=== PATIENT | female | born 1970 | race Caucasian/White ===

== ENCOUNTER 2019-03-18 23:23 | Emergency (ER) | payer BC | END 2019-03-19 00:35 | disposition home or self-care (01) | LOC: ERS 23:23 | DX: B35.9 Dermatophytosis, unspecified (principal); E03.9 Hypothyroidism, unspecified; Z79.899 Other long term (current) drug therapy | CPT/HCPCS: 99282 ==

== ENCOUNTER 2019-07-27 09:53 | Outpatient (CLI) | payer OTHER ==
--- NOTE | 2019-07-27 12:09 | MMO ---
Left Breast MAMMO Unilat Diag DDI LT+JOSE J. CLINICAL HISTORY: Patient is 49 years old and is seen for diagnostic exam. The patient has the following family history of breast cancer: mother, at age 68, malignant (generic); maternal aunt, at age 70, malignant (generic) and cousin female, at age 38, malignant (generic). The patient has a history of thyroid cancer in 2010. VIEWS: The views performed were: left craniocaudal spot compression magnification; left craniocaudal spot compression with tomosynthesis; left mediolateral oblique spot compression with tomosynthesis; left mediolateral spot compression magnification; and left mediolateral with tomosynthesis. FILMS COMPARED: The present examination has been compared to prior imaging studies performed at [facility] on 07/20/2019, and at [facility] on 06/08/2015, 06/26/2016 and 07/27/2019. This study has been interpreted with the assistance of computer-aided detection. MAMMOGRAM FINDINGS: There are scattered fibroglandular densities. Finding 1: There is a mass with obscured margins seen in the left breast. Cluster of microcalcifications are seen associated with this mass. These calcifications are more conspicuous on today's additional views and may be increased in number. The calcifications are indeterminate. Finding 2: There is an asymmetry seen in the left breast at 3 o'clock. This asymmetric density is less conspicuous on the additional views. Ultrasound shows a small cyst which does not correspond to this area. Findings are likely secondary to superimposition of breast tissue. IMPRESSION: FINDING 1: CALCIFICATIONS IN THE LEFT BREAST ARE SUSPICIOUS. A STEREOTACTIC BREAST BIOPSY IS RECOMMENDED. FINDING 2: ASYMMETRY IN THE LEFT BREAST AT 3 O'CLOCK IS PROBABLY BENIGN. FOLLOW-UP IN 6 MONTHS IS RECOMMENDED. SHORT 6 MONTH FOLLOW UP EVALUATION IS RECOMMENDED. THE RESULTS OF THIS EXAM WERE SENT TO THE PATIENT. ACR BI-RADS Category 4 - Suspicious abnormality - biopsy should be considered MAMMOGRAPHY NOTE: 1. A negative mammogram report should not delay a biopsy if a dominant of clinically suspicious mass is present. 2. Approximately 10% to 15% of breast cancers are not detected by mammography. 3. Adenosis and dense breasts may obscure an underlying neoplasm. Reported by: KIMBERLI ANNE MD Electonically Signed: [id number]
--- NOTE | 2019-07-27 15:49 | ULT ---
LIMITED ULTRASOUND LEFT BREAST: HISTORY: Asymmetry seen in posterior depth outer left breast at the approximately 3 o'clock position with an a dditional asymmetry seen at approximately 5 o'clock position left breast with associated microcalcifi cations. Microcalcifications did appear more conspicuous and increased in number compared to prior s tudies. FINDINGS: A tiny anechoic structure is seen at the 3 o'clock position of the left breast demonstrating characte ristics most suggestive of a small cyst. No solid mass is appreciated. The asymmetry seen in the ou ter left breast on today's additional views did not redemonstrate the conspicuous area of asymmetry. A more subtle area of asymmetry is seen without discrete mass. Limited sonographic evaluation was also performed in the region of the mass with associated calcifica tion left breast 5 o'clock position. There is a heterogeneous mass seen at the 5 o'clock position me asuring 1.2 cm x 0.7 cm. A few punctate echogenic foci are faintly visualized likely corresponding t o microcalcifications seen on mammographic evaluation. Also at the 5 o'clock position left breast, there is a circumscribed anechoic cystic lesion measuring 0.8 cm most compatible with a small cyst. IMPRESSION: 1. BIRADS category 4, suspicious abnormality. Biopsy is recommended. Stereotactic-guided biopsy of the left breast microcalcifications with associated mass is recommended. Ultrasound-guided left ricardo ast biopsy could be performed given that microcalcifications were likely present in the mass. Sherone r, to ensure adequate biopsy of microcalcifications, a stereotactic-guided breast biopsy is recommend ed. 2. Short 6-month followup unilateral left breast mammogram is recommended for further evaluation of the previously described focal asymmetry in the posterior depth outer left breast which is likely rel ated to benign parenchymal asymmetry given that this area is much less conspicuous on today's mammogr aphic images, and no definite corresponding mass is seen on ultrasound evaluation. 3. Recommendation of stereotactic-guided breast biopsy was discussed with Dr. Ad Mcgraw's nurse , on 07/27/2019 at 1457 hours. CODE CR POS: OFF
== END 2019-07-27 09:54 | disposition home or self-care (01) ==
LOC: BICMAMMO 09:53
PROVIDERS: ATTEND Obstetrics & Gynecology
DX: R92.2 Inconclusive mammogram (principal); N64.89 Other specified disorders of breast
CPT/HCPCS: G0279

== ENCOUNTER → 2019-08-04 | Day surgery (SDC) | payer OTHER ==
--- NOTE | 2019-08-04 08:46 | MMO ---
Stereotactic guided biopsy left breast microcalcifications Surgical specimen mammography Diagnostic left mammogram post biopsy HISTORY: Abnormal mammogram. Microcalcifications. FINDINGS: After explaining the procedure and answering all questions, microcalcifications at the infe rior aspect of the left breast were again visualized. Sterile technique, buffered local anesthesia, stereotactic guidance, and a lateral approach were used to carefully advance the tip of a 10-gauge va cuum-assisted needle into the cluster of microcalcifications. Position was confirmed. A total of 6 specimens were obtained. Surgical specimen mammography shows microcalcifications within the tissue. Localization clip was placed in the biopsy bed under stereotactic guidance. Needle was removed. Len bowles tolerated the procedure well and was eventually dismissed in good condition. Postprocedure mammogram shows heterogeneously dense fibroglandular tissue. Small pockets of gas and l ocalization clip are now present in the biopsy bed with less microcalcifications than prior to the biopsy. IMPRESSION: Technically successful stereotactic guided biopsy left breast microcalcifications. Pathol ogy is pending.
== END ==
LOC: MAMMO 07:04
PROVIDERS: ATTEND Surgery
PROC: 0H9U3ZX Drainage of Left Breast, Percutaneous Approach, Diagnostic (ICD-10-PCS; principal; 2019-08-04)
DX: D05.02 Lobular carcinoma in situ of left breast (principal)
CPT/HCPCS: 19081; 76098; 88305; 88341; 88342

== ENCOUNTER 2019-08-16 13:36 | Outpatient (CLI) | payer OTHER ==
--- NOTE | 2019-08-16 14:50 | ULT ---
ULTRASOUND OF THE LEFT AXILLA: HISTORY: Two different types of left breast cancer. Evaluate staging and metastatic disease to the left axill a. TECHNIQUE: Multiplanar, soto scale, and color Doppler images were obtained in a targeted ultrasound of the left axilla. FINDINGS: Two normal-appearing lymph nodes are seen. both of these lymph nodes have a fatty hilum without sign ificant thickening of the cortex of the lymph node. IMPRESSION: Normal-appearing lymph nodes are seen in the left axilla. POS: [facility]
== END 2019-08-16 13:37 | disposition home or self-care (01) ==
LOC: BICULT 13:36
PROVIDERS: ATTEND Surgery
DX: C50.919 Malignant neoplasm of unspecified site of unspecified female breast (principal)
CPT/HCPCS: 76999

== ENCOUNTER 2019-08-18 07:54 | Outpatient (CLI) | payer OTHER ==
--- NOTE | 2019-08-18 09:09 | CT ---
CT Abdomen Pelvis W WO con: 08/18/2019 12:00 AM CLINICAL INFORMATION: Intermittent abdominal pain for years COMPARISON: None. TECHNIQUE: Multiple contiguous axial images were obtained and a CT of the abdomen and pelvis without and with IV contrast. Coronal and sagittal reformats were performed. FINDINGS: Lower Chest: within normal limits. Abdomen: Liver: Mild diffuse fatty infiltration of the liver. Bile Ducts: Normal caliber. Gallbladder: No calcified gallstones. Normal caliber wall. Pancreas: within normal limits. Spleen: within normal limits. Adrenals: within normal limits. Kidneys: within normal limits. No renal calculi. Pelvis: Reproductive Organs: No pelvic masses. Nonspecific fluid in the endometrial canal. Ureters: within normal limits. Bladder: within normal limits. Peritoneum: No ascites or free air, no fluid collection. Bowel: Normal caliber. Mesentery and Retroperitoneum: No enlarged mesenteric or retroperitoneal lymph nodes. Vessels: Normal. Abdominal Wall: within normal limits. Bones: Degenerative changes in the spine. IMPRESSION: Fatty liver
[2019-08-18] MEDS ORDERED: Iopamidol-370 76% 500 ML 1 ML ONE (14:47)
== END 2019-08-18 07:55 | disposition home or self-care (01) ==
LOC: BICCT 07:54
PROVIDERS: ATTEND Physician Assistant Medical
DX: R10.9 Unspecified abdominal pain (principal); C50.919 Malignant neoplasm of unspecified site of unspecified female breast; R42 Dizziness and giddiness; K76.0 Fatty (change of) liver, not elsewhere classified
CPT/HCPCS: 74178; Q9967

== ENCOUNTER 2019-08-23 07:54 | Outpatient (CLI) | payer OTHER ==
[2019-08-23 13:00] LABS: #Basophils 0.1 thou/uL (0.0-0.2); #Eosinphils 0.1 thou/uL (0.0-0.7); #Monocytes 0.3 thou/uL (0.11-0.59); #Neutrophils 3.3 thou/uL (1.40-6.50); %Eosinophils 1.1 % (0.0-10.0); %Lymphocytes 35.6 % (21.0-51.0); %Monocytes 5.3 % (0.0-10.0); %Neutrophils 57.1 % (42.0-75.0); Hemoglobin 14.3 g/dL (12.0-16.0); Mean Corpuscular HGB CONC 34.8 g/dL (32.0-36.0); Mean Corpuscular Hemoglobin 29.3 pg (27.0-31.0); Mean Corpuscular Volume 84.2 fL (78.0-98.0); Mean Platelet Volume 8.6 fL (7.4-10.4); Platelet Count 271 thou/uL (130-400); RBC Distribution Width 14.1 % (11.5-14.5); White Blood Cell (WBC) Count 5.8 thou/uL (4.8-10.8)
[2019-08-23 13:19] LABS: Anion Gap 14 mmol/L (10-20); BUN (Urea Nitrogen) 9 mg/dL (9.8-20.1); Calc. Creatinine Clearance 0 mL/min (70-130); Calcium 8.8 mg/dL (7.8-10.44); Carbon Dioxide 23 mmol/L (22-29); Chloride 104 mmol/L (98-107); Estimated GFR-MDRD 69; Glucose 86 mg/dL (70-105); Sodium 137 mmol/L (136-145)
== END 2019-08-23 07:55 | disposition home or self-care (01) ==
LOC: LABBT 07:54
PROVIDERS: ATTEND Surgery
DX: Z01.812 Encounter for preprocedural laboratory examination (principal); C50.912 Malignant neoplasm of unspecified site of left female breast
CPT/HCPCS: 80048; 85025

== ENCOUNTER 2019-08-25 07:11 | Day surgery (SDC) | payer OTHER ==
[2019-08-23 10:49] VITALS: BMI 38.7
--- NOTE | 2019-08-25 09:14 | NM ---
Exam: Nuclear medicine lymphoscintigraphy HISTORY: Left breast cancer. TECHNIQUE: Patient measured 0.420 mCi of technetium 99m filtered sulfur colloid subcutaneously. Radio tracer was administered at the 12:00, 3:00, 6:00 and 9:00 position with respect to left areola. FINDINGS: [place] lymph node is identified at the level of the axilla. IMPRESSION: Axillary sentinel lymph node.
[2019-08-25] MEDS ORDERED: PROPOFOL 200 MG/20 ML VIAL ONE (09:51)
[2019-08-25] MEDS ORDERED: diphenhydrAMINE 50 MG/ML VIAL ONE (09:51)
[2019-08-25] MEDS ORDERED: Dexamethasone 20 MG/5 ML VIAL ONE (09:51)
[2019-08-25] MEDS ORDERED: Ondansetron PF 4 MG/2 ML Vial ONE (09:51)
[2019-08-25] MEDS ORDERED: Succinylcholine Chloride 20 MG/ML 10 ml SYRINGE FS ONE (09:51)
[2019-08-25] MEDS ORDERED: Rocuronium Bromide 10 MG/ML (10ML VIAL) ONE (09:51)
[2019-08-25] MEDS ORDERED: Methylene Blue 50 MG/10 ML AMPUL ONE (10:16)
[2019-08-25] MEDS ORDERED: Scopolamine 1.5 mg/72 hour Patch ONE (10:16)
[2019-08-25] MEDS ORDERED: Fentanyl 100 MCG/2 ML VIAL ONE ×3 (10:16→12:05)
[2019-08-25] MEDS ORDERED: Levofloxacin 500 mg/D5W 100 ml Premix Bag ONE (10:40)
[2019-08-25] MEDS ORDERED: SUGAMMADEX SODIUM 200 MG/2 ML VIAL ONE (11:47)
[2019-08-25] MEDS ORDERED: Sodium Chloride For Inhalation 0.9% 3 ML NEB ONE (12:38)
[2019-08-25] MEDS ORDERED: Racepinephrine 2.25% 0.5 ML NEB ONE (12:38)
[2019-08-25] MEDS ORDERED: Midazolam HCl 2 mg/2 ml Vial ONE (12:39)
--- NOTE | 2019-08-25 13:30 | MMO ---
MAMMOGRAPHIC GUIDED NEEDLE LOCALIZATION: HISTORY: Left breast cancer; invasive lobular carcinoma. Biopsy clip is in place. Needle localization is req uested for surgery. FINDINGS: Successful left breast needle localization. A 10 cm [place] needle and wire are adjacent to the biopsy clip. TECHNIQUE: Consent was obtained to perform a left breast needle localization. Left breast is evaluated. Via th e lateral approach, a 10 cm [place] needle and wire were advanced into the left breast. Needle positio n was confirmed in orthogonal planes. The wire was deployed. Needle and wire are adjacent to the cl ip. No immediate or postprocedure complications. IMPRESSION: Successful left breast needle localization. SURGICAL SPECIMEN: Surgical specimen demonstrates a biopsy clip as well as calcifications in the [place] wire. Findings w ere conveyed to Dr. Link 08/25/2019 at 11:42 a.m. IMPRESSION: Surgical specimen demonstrates the surgical clip and [place] wire. CODE CR POS: OFF
[2019-08-25] MEDS ORDERED: HYDROcodone/Acetaminophen 5/325 mg Tablet ONE (14:25)
[2019-08-25] MEDS ORDERED: traMADol HCl 50 MG TAB ONE (14:45)
--- NOTE | 2019-08-26 08:32 | OP ---
DATE OF PROCEDURE: 08/25/2019 PREOPERATIVE DIAGNOSIS: Left breast cancer. POSTOPERATIVE DIAGNOSIS: Left breast cancer. PROCEDURES PERFORMED: 1. Left breast partial mastectomy after needle localization. 2. Left breast sentinel node biopsy (deep axillary node biopsy). ANESTHESIA: General. ESTIMATED BLOOD LOSS: Minimal. COMPLICATIONS: None. SPECIMEN: Left breast mass, marked with two short superior, one long lateral, sent to Path for final diagnosis. DESCRIPTION OF PROCEDURE: The patient was taken to the operating room and laid supine on the operating room table. After general anesthetic was obtained, the left breast was injected with 5 mL of methylene blue dye and massaged for 5 minutes. The left breast, chest, axilla, and arm were all prepped and draped in a sterile fashion. An incision was made on the inferior hairline of the left axilla. Neoprobe was used to find the area of increased uptake. An area of increased uptake and a blue lymph node was found and sent to Path as the sentinel node. The wound was irrigated and closed using 3-0 Vicryl, 4-0 Monocryl, and Dermabond. In the area of needle localization wire, incision was made. Flaps were raised superomedially, inferolaterally and posterior to the edge into the needle localization wire. Specimen was x-rayed, which revealed previous biopsy clip to be in the specimen. The specimen was marked two short superior, one long lateral and sent to Path for final diagnosis. The wound was irrigated and closed using 3-0 Vicryl, 4-0 Monocryl, and Dermabond. The patient was sent to Recovery in stable condition. All instrument counts, needle counts, and lap counts were correct. Job ID: [id number]
== END 2019-08-25 15:25 | disposition home or self-care (01) ==
LOC: SDC 07:11
PROVIDERS: ATTEND Surgery
PROC: 07B60ZX Excision of Left Axillary Lymphatic, Open Approach, Diagnostic (ICD-10-PCS; principal; 2019-08-25)
PROC: 0HBU0ZZ Excision of Left Breast, Open Approach (ICD-10-PCS; principal; 2019-08-25)
DX: C50.512 Malignant neoplasm of lower-outer quadrant of left female breast (principal); E78.5 Hyperlipidemia, unspecified; Z17.0 Estrogen receptor positive status [ER+]; Z79.899 Other long term (current) drug therapy; Z88.0 Allergy status to penicillin; Z88.4 Allergy status to anesthetic agent; Z88.8 Allergy status to other drugs, medicaments and biological substances; Z91.02 Food additives allergy status
CPT/HCPCS: 19281; 76098; 78195; 88307; 88342; A9541; J0690; J1100; J1200; J1956; J2250; J2405; J2704; J3010; Q9968

== ENCOUNTER 2019-10-09 20:31 | Emergency (ER) | payer OTHER ==
[2019-10-09] MEDS ORDERED: Morphine 4 MG/ML VIAL ONE (21:46)
[2019-10-09] MEDS ORDERED: Ondansetron ODT 4 MG TAB ONE (21:51)
--- NOTE | 2019-10-09 22:41 | CT ---
CT lumbar spine noncontrast HISTORY: Back pain. FINDINGS: Vertebral body heights and AP alignment are maintained. There is mild leftward convex curva ture. Bone island is noted within the L1 vertebral body. Osteophytosis throughout the vertebral bodies and facets. At the L3-4 level, posterior disc bulge and circumferential degenerative changes are present with mod erate stenosis of the central canal. At the lumbosacral junction, soft tissue density projects posteriorly from the disc space and extends inferiorly behind the left side of the S1 segment, compressing the left S1 nerve root. Disc bulge and degenerative changes also result in stenosis of the neural foramina at this level. IMPRESSION : Left posterior paracentral disc herniation at the lumbosacral junction, most greatly affecting the le ft S1 nerve root origin. Clinical correlation regarding the left S1 dermatome is required. Degenerative changes throughout the remainder of the lumbar spine, including significant central jeremy l stenosis at the L3-4 level and bilateral foraminal stenoses at the lumbosacral junction.
[2019-10-09] MEDS ORDERED: Ketorolac Tromethamine 30 MG/ML VIAL ONE (23:59)
[2019-10-10] MEDS ORDERED: Ketorolac Tromethamine 30 MG/ML VIAL ONE
[2019-10-10] MEDS ORDERED: Diazepam 5 MG TAB ONE (00:42)
== END 2019-10-10 00:50 | disposition home or self-care (01) ==
LOC: ERS 20:31
DX: M51.16 Intervertebral disc disorders with radiculopathy, lumbar region (principal); E03.9 Hypothyroidism, unspecified; Z79.899 Other long term (current) drug therapy
CPT/HCPCS: 72131; 96372; J1885; J2270; Q0162

== ENCOUNTER 2019-11-25 14:10 | Outpatient (CLI) | payer OTHER ==
--- NOTE | 2019-11-25 14:46 | ULT ---
Exam: Soft tissue neck ultrasound HISTORY: 10 years since patient had a thyroidectomy for thyroid cancer. Evaluate for regrowth. Patien t feels a swelling in her neck. COMPARISON: None FINDINGS: Targeted sonographic imaging of the thyroid and left/right neck below the jaw was performed . Soft tissue echotexture. No masses or lymphadenopathy. No sonographic evidence of residual thyroid ti ssue. IMPRESSION: No sonographic evidence of lymphadenopathy or thyroid tissue. If there is concern for a s oft tissue mass, other than residual thyroid tissue consider a postcontrast soft tissue neck CT. If there is concern for residual thyroid tissue, consider nuclear medicine imaging.
== END 2019-11-25 14:11 | disposition home or self-care (01) ==
LOC: BICULT 14:10
PROVIDERS: ATTEND Internal Medicine Endocrinology, Diabetes & Metabolism
DX: Z08 Encounter for follow-up examination after completed treatment for malignant neoplasm (principal); Z85.850 Personal history of malignant neoplasm of thyroid
CPT/HCPCS: 76536

== ENCOUNTER 2020-02-29 06:14 | Day surgery (SDC) | payer OTHER ==
[2020-02-25 14:25] LABS: Hemoglobin 13.1 g/dL (12.0-16.0); Mean Corpuscular HGB CONC 34.6 g/dL (32.0-36.0); Mean Corpuscular Hemoglobin 29.3 pg (27.0-31.0); Mean Corpuscular Volume 84.8 fL (78.0-98.0); Mean Platelet Volume 8.1 fL (7.4-10.4); Platelet Count 237 thou/uL (130-400); RBC Distribution Width 13.5 % (11.5-14.5); Red Blood Cell (RBC) Count 4.48 mill/uL (4.20-5.40)
[2020-02-25 15:04] LABS: BHCG - Serum Negative (NEGATIVE); Pregs Control Background? CLEAR/WHITE (CLR/WHITE); Pregs Control Bar Appear? YES (CONTROL BAR)
[2020-02-26 14:55] LABS: SARS-CoV-2 MS2 Positive; SARS-CoV-2 N Gene Negative; SARS-CoV-2 S Gene Negative; SARS-CoV-2 by NAA Not Detected (NotDetected); SARS-CoV-2 orf1ab Negative
[2020-02-28 12:35] VITALS: BMI 35.1
--- NOTE | 2020-02-28 18:17 | HP ---
DATE OF SCHEDULED PROCEDURE: 02/29/2020. REASON FOR PROCEDURE: Postmenopausal bleeding with ER/MO positive breast cancer, status post lumpectomy and the stress urinary incontinence. SCHEDULED PROCEDURES: Total laparoscopic hysterectomy, bilateral salpingo-oophorectomy, midurethral sling with Advantage Fit, and cystoscopy. HISTORY OF PRESENT ILLNESS: Ms. Vega is a 50-year-old 2, para 2, status post x2, who has been a patient of mine. She had a BI-RADS 4 mammogram back in July and breast biopsy revealed ER/MO positive, HER2 negative breast cancer. She underwent a lumpectomy and radiation. She is currently on tamoxifen. She desires a bilateral salpingo-oophorectomy. She has had occasional postmenopausal bleeding. She has frequent stress incontinence and wears a pad continuously. LAUNDRY PRESSER HISTORY: As noted. No history of dysplasia. No history of STD. PAST MEDICAL HISTORY: Significant for: 1. Breast cancer left. 2. Hypothyroidism. SURGICAL HISTORY: 1. Lumpectomy, left. 2. Thyroidectomy. MEDICATIONS: 1. Synthroid. 2. Amoxicillin. ALLERGIES: LIDOCAINE AND PENICILLINS. THE PATIENT REPORTS SHE HAD A REACTION TO PEN-VEE K A CHILD. SHE HAS TAKEN CEPHALOSPORINS WITHOUT ADVERSE EFFECT. FAMILY HISTORY: Contributory for breast cancer in her mother. SOCIAL HISTORY: Denies tobacco, alcohol, or drug abuse. PHYSICAL EXAMINATION: GENERAL: White female, height 5 feet 2 inches, weight 215, BMI 39, blood pressure 118/80, pulse 79, and respirations 18. HEENT: Within normal limits. LUNGS: Clear to auscultation bilaterally. HEART: Regular rate and rhythm. BREASTS: Without masses bilaterally. Well-healed lumpectomy scar. ABDOMEN: Soft and nontender without rebound or guarding. PELVIC: Vulva without lesions. Vagina, the patient has a hypermobile urethra. No significant cystocele or rectocele. Cervix, parous. Uterus anteverted, 8-week size. Adnexa, no masses bilaterally. EXTREMITIES: Without clubbing, cyanosis, or edema. LABORATORY DATA: Endometrial biopsy revealed proliferative endometrium. Ultrasound was unremarkable. IMPRESSION: 1. Status post lumpectomy for an ER/MO positive, HER2 negative breast cancer, left. 2. Family history of breast cancer. 3. Postmenopausal spotting. 4. Stress urinary incontinence. PLAN: Discussed with the patient options. We will proceed with total laparoscopic hysterectomy, bilateral salpingo-oophorectomy, midurethral sling with Advantage Fit, and cystourethroscopy. We will administer appropriate antibiotic and DVT prophylaxis. The patient understands risks and benefits of the procedure. Job ID: [id number]
[2020-02-29] MEDS ORDERED: Levofloxacin 500 mg/D5W 100 ml Premix Bag ONE (06:30)
[2020-02-29] MEDS ORDERED: Clindamycin/D5W 900 mg/50 ml Premix Bag ONE (06:30)
[2020-02-29] MEDS ORDERED: Lidocaine 1% w/Epinephrine 1:100K 20 ML VIAL ONE (06:34)
[2020-02-29] MEDS ORDERED: Bupivacaine PF 0.5% 30 ML VIAL ONE (06:34)
[2020-02-29] MEDS ORDERED: Midazolam HCl 2 mg/2 ml Vial ONE (07:12)
[2020-02-29] MEDS ORDERED: CeleCOXIB 100 MG CAP ONE (07:17)
[2020-02-29] MEDS ORDERED: Gabapentin 300 MG CAP ONE (07:17)
[2020-02-29] MEDS ORDERED: Famotidine/PF 20 mg/2ml Vial ONE (07:18)
[2020-02-29] MEDS ORDERED: Fentanyl 250 MCG/5 ML VIAL ONE (07:31)
[2020-02-29] MEDS ORDERED: Bupivacaine/Epinephrine 0.25% 30 ML VIAL ONE (08:07)
[2020-02-29] MEDS ORDERED: Zolpidem Tartrate 5 MG TAB PO PRN (09:25)
[2020-02-29] MEDS ORDERED: Promethazine HCl 25 MG/ML VIAL IM PRN ×2 (09:25→09:53)
[2020-02-29] MEDS ORDERED: traMADol HCl 50 MG TAB PO PRN (09:25)
[2020-02-29] MEDS ORDERED: HYDROcodone/Acetaminophen 10/325 mg Tablet PO PRN (09:25)
[2020-02-29] MEDS ORDERED: Ondansetron PF 4 MG/2 ML Vial IVP PRN (09:25)
[2020-02-29] MEDS ORDERED: Bisacodyl 10 MG SUPP PR PRN (09:25)
[2020-02-29] MEDS ORDERED: Morphine 4 MG/ML VIAL SLOW IVP PRN (09:25)
[2020-02-29] MEDS ORDERED: Simethicone Chewable 80 MG TAB PO PRN (09:25)
[2020-02-29] MEDS ORDERED: diphenhydrAMINE 25 MG CAP PO PRN (09:25)
[2020-02-29] MEDS ORDERED: Promethazine HCl 25 MG/ML VIAL SLOW IVP PRN (09:53)
[2020-02-29] MEDS ORDERED: Ondansetron HCl/PF 4 MG/2 ML Vial IVP PRN (09:53)
[2020-02-29] MEDS ORDERED: Racepinephrine 2.25% 0.5 ML NEB ONE (10:14)
[2020-02-29] MEDS ORDERED: Sodium Chloride For Inhalation 0.9% 3 ML NEB ONE (10:14)
[2020-02-29] MEDS ORDERED: Fentanyl 100 MCG/2 ML VIAL ONE (10:37)
[2020-02-29] MEDS ORDERED: Dexamethasone 20 MG/5 ML VIAL ONE (11:11)
[2020-02-29] MEDS ORDERED: Ondansetron PF 4 MG/2 ML Vial ONE (11:11)
[2020-02-29] MEDS ORDERED: Ketorolac Tromethamine 30 MG/ML VIAL ONE (11:11)
[2020-02-29] MEDS ORDERED: PROPOFOL 200 MG/20 ML VIAL ONE (11:11)
[2020-02-29] MEDS ORDERED: EPHEDRINE 25 MG/5 ML SYRINGE ONE (11:11)
[2020-02-29] MEDS ORDERED: Rocuronium Bromide 10 MG/ML (10ML VIAL) ONE (11:11)
--- NOTE | 2020-02-29 11:16 | OP ---
DATE OF PROCEDURE: 02/29/2020 PREOPERATIVE DIAGNOSES: Postmenopausal bleeding; estrogen receptor, progesterone receptor positive breast cancer with stress urinary incontinence. POSTOPERATIVE DIAGNOSES: Postmenopausal bleeding; estrogen receptor, progesterone receptor positive breast cancer with stress urinary incontinence. PROCEDURES PERFORMED: Total laparoscopic hysterectomy, bilateral salpingo-oophorectomy, and mid urethral sling with cystoscopy. ANESTHESIA: General endotracheal. SALES TECHNICIAN HOME THEATER: KIM Castillo. ESTIMATED BLOOD LOSS: 100 mL. DRAINS: Leone to gravity. MEDICATIONS: Clindamycin and Levaquin preincision. COMPLICATIONS: None. OPERATIVE FINDINGS: 1. Approximately 8 week size uterus with solitary posterior fibroid. 2. Normal-appearing tubes and ovaries bilaterally. 3. Hemostasis, clear urine. 4. Counts correct at the end of the procedure. 5. Normal-appearing bladder, good ureteral efflux bilaterally post surgically with no evidence of mid urethral sling trocar injury. DISPOSITION: Recovery room in good condition. DESCRIPTION OF PROCEDURE: After obtaining appropriate informed consent, the patient was taken to the operating room, where general endotracheal anesthesia was achieved without difficulty. The patient was1 prepped and draped in dorsal lithotomy position in [facility]. A weighted speculum was placed in vagina, cervix identified, grasped with single-toothed tenaculum at 12 o'clock, sounded to 8 cm. ANITA manipulator with a 3.5 vaginal personal banking assistant and an 8 cm obturator was placed without difficulty. Leone catheter was placed and hooked up to a 60 mL syringe. Recreation Clerk turned his attention to the abdominal portion of the procedure. 5 mL of Marcaine was injected at the superior aspect of the umbilicus. A Veress needle was placed inside the abdominal cavity. Insufflation was carried out with carbon dioxide at max pressure of 15, volume approximately 3 L. A 12 mm Marie trocar was then placed through the incision. Confirmation entry into the peritoneal cavity was noted without trauma to underlying viscera. The right and left lateral da Tessie ports were placed under direct visualization as well as an miner assistant port 11 mm in the right upper quadrant, monopolar scissors in the right hand and bipolar fenestrated forceps were placed in the left hand. Left ovary was mobilized. Infundibulopelvic ligament coagulated and transected. Ureter identified, noted to be well lateral to the surgical field. Coagulation and transection of the broad to round and down to the level of the internal cervical os was carried out. The vesicouterine peritoneum was incised sharply anteriorly and bladder dissected off the lower uterine segment cervix and upper vagina. Skeletonization of the uterine vessels carried out on the left and these were transected after coagulation. Attention was turned to the right, identical procedure was carried out. The bladder was backfilled to identify and make sure to avoid injury. After skeletonization of the uterine vessels on the right side was carried out and they were transected, vagina was entered at 12 o'clock and extended from 12 to 3 and 12 to 9 and then from 3 to 6 and 9 to 6, amputating the specimen. Specimen was pulled into the vagina to maintain pneumoperitoneum. Suction and irrigation carried out. Good hemostasis was noted. The cuff was closed using a running continuous 2-0 PDS Stratafix from right to left and back to right in the usual technique. Good hemostasis was noted and Tisseel was placed across pedicles. Da Tessie instruments were removed. The abdomen was desufflated of carbon dioxide after undocking the da Tessie robot. Trocars removed. Fascia reapproximated at superior umbilical trocar using 0 Vicryl and UR6 needle and skin reapproximated x4 using 4-0 Monocryl and Dermabond. Legs were rotated up to 30 degrees and Leone catheter was identified in the vagina. Mid urethra was isolated approximately 1.5 cm. Hydrodissection into the space of Retzius was carried out with approximately 100 mL of normal saline. Mid urethra was infiltrated using Marcaine with epinephrine. A 15 blade was used to make the incision and blunt and sharp dissection was carried out lateral to the level of the pubic rami. Advantage Fit sling was placed after placing the catheter guide in the Leone and deviating the urethra away from the side that the trocar was being placed on. It was 1st placed on the patient's right and then on the patient's left. The catheter was removed and cystourethroscopy revealed no injury to the bladder. Good ureteral efflux bilaterally. Bladder was drained and Leone replaced. Medium size dilator placed between the mid urethra and the Advantage Fit tape. It was pulled up taut against this and then the covering sleeves tab was cut and the sleeves removed. Excess mesh was removed at the level of the symphysis pubis. Good hemostasis was noted. The vaginal mucosa was closed using a running locking 2-0 Vicryl suture. [place] catheter had been replaced. Clear urine was noted. A Kerlix sponge was placed in the vagina as a packing. The patient was awakened, extubated to recovery room in good condition. Dermabond was placed at the trocar sites suprapubically. Job ID: [id number]
[2020-02-29] MEDS ORDERED: Ketorolac Tromethamine 30 MG/ML VIAL IVP SCH (12:00)
[2020-02-29] MEDS: Ketorolac Tromethamine 30 MG/ML VIAL IVP SCH ×2 (15:24→21:58)
[2020-02-29] MEDS: HYDROcodone/Acetaminophen 10/325 mg Tablet PO PRN (16:40)
[2020-02-29] MEDS ORDERED: Gabapentin 300 MG CAP PO SCH (21:00)
[2020-03-01] MEDS: HYDROcodone/Acetaminophen 10/325 mg Tablet PO PRN ×2 (01:01→09:42)
[2020-03-01] MEDS: Ketorolac Tromethamine 30 MG/ML VIAL IVP SCH (05:01)
[2020-03-01] MEDS ORDERED: Levothyroxine Sodium 100 MCG TAB PO SCH (06:00)
[2020-03-01 06:29] LABS: Hemoglobin 11.3 g/dL (12.0-16.0); Mean Corpuscular HGB CONC 34.2 g/dL (32.0-36.0); Mean Corpuscular Hemoglobin 29.1 pg (27.0-31.0); Mean Corpuscular Volume 84.9 fL (78.0-98.0); Mean Platelet Volume 7.9 fL (7.4-10.4); Platelet Count 212 thou/uL (130-400); RBC Distribution Width 13.4 % (11.5-14.5); Red Blood Cell (RBC) Count 3.89 mill/uL (4.20-5.40); White Blood Cell (WBC) Count 5.9 thou/uL (4.8-10.8)
[2020-03-01] MEDS: Ibuprofen 800 MG TAB PO SCH ×2 (07:33→13:28)
--- NOTE | 2020-03-01 08:37 | DIS ---
DATE OF ADMISSION: 02/29/2020 DATE OF DISCHARGE: 03/01/2020 PRINCIPAL AND HOSPITAL PROCEDURES: Total laparoscopic hysterectomy, bilateral salpingo-oophorectomy, mid-urethral sling with cystourethroscopy. SUMMARY OF HOSPITAL COURSE: The patient underwent the aforementioned surgery on the morning of 02/28. She had a Leone discontinued p.m. of 02/28. The patient is voiding with postvoid volumes of approximately 200 to 250 mL and postvoid residuals by bladder scan of approximately 200 mL as well. These are slowly declining and anticipate being closer to 100 mL after lunch today. She has no complaints other than normal soreness postoperatively. Vital signs; temperature 97.8, pulse 54, respirations 20, blood pressure 106/52. The patient had 500 mL Leone, is voided several times, and had postvoid residuals approximately 400 mL total. LABORATORY DATA: Hematocrit this morning went from 38% to 33%, normal platelet count. PHYSICAL EXAMINATION: LUNGS: Clear to auscultation bilaterally. HEART: Regular rate and rhythm. ABDOMEN: Soft and nontender. No distention. No rebound or guarding. Trocar sites all dry. Perineum dry. EXTREMITIES: No clubbing, cyanosis, or edema. IMPRESSION: Doing well status post total laparoscopic hysterectomy, mid-urethral sling. PLAN: Continue checking postvoid scans for postvoid residuals. Anticipate discharge home at 100 to 150 mL PVR later today. The patient has medications and followup scheduled. Job ID: [id number]
[2020-03-01 11:29] VITALS: BP 117/66; TEMP 97.7
== END 2020-03-01 14:00 | disposition home or self-care (01) ==
LOC: SDC 06:14 → 3SE 09:24 → SDC 03-01 14:00
PROVIDERS: ATTEND Obstetrics & Gynecology
PROC: 0UT94ZZ Resection of Uterus, Percutaneous Endoscopic Approach (ICD-10-PCS; principal; 2020-02-29)
PROC: 0UT24ZZ Resection of Bilateral Ovaries, Percutaneous Endoscopic Approach (ICD-10-PCS; principal; 2020-02-29)
PROC: 0UT74ZZ Resection of Bilateral Fallopian Tubes, Percutaneous Endoscopic Approach (ICD-10-PCS; principal; 2020-02-29)
PROC: 0TSD0ZZ Reposition Urethra, Open Approach (ICD-10-PCS; principal; 2020-02-29)
DX: N72 Inflammatory disease of cervix uteri (principal); N80.0 Endometriosis of uterus; D25.9 Leiomyoma of uterus, unspecified; N73.6 Female pelvic peritoneal adhesions (postinfective); N83.291 Other ovarian cyst, right side; N39.3 Stress incontinence (female) (male); C50.912 Malignant neoplasm of unspecified site of left female breast; E89.0 Postprocedural hypothyroidism; Z17.0 Estrogen receptor positive status [ER+]; Z79.899 Other long term (current) drug therapy; Z88.0 Allergy status to penicillin; Z88.8 Allergy status to other drugs, medicaments and biological substances; Z91.02 Food additives allergy status; Z20.828 Contact with and (suspected) exposure to other viral communicable diseases
CPT/HCPCS: 36415; 84703; 85027; 86850; 86900; 86901; 87635; 88307; C1781; J1100; J1885; J1956; J2250; J2405; J2704; J3010; J3490; S0020; S0028; U0003

== ENCOUNTER 2020-05-30 10:36 | Outpatient (CLI) | payer OTHER ==
--- NOTE | 2020-05-30 11:19 | BD ---
DEXA BONE DENSITOMETRY: (Dual energy x-ray absorptiometry) DATE: 05/30/2020 HISTORY: 50-year old white female for age-related, post-menopausal, osteoporosis screening. Weight: 199 lbs Height: 62 in. Age of menopause: 50 COMPARISON: None available. FINDINGS: The bone mineral density (BMD) is given in grams per square centimeter (g/cm2): LUMBAR SPINE: BMD (g/cm^2) T score Z score L1: 1.344 3.2 4.0 L2: 1.347 2.9 3.8 L3: 1.373 2.6 3.5 L4: 1.521 4.2 5.1 Total: 1.400 3.2 4.1 HIP: BMD (g/cm^2) T score Z score Femoral neck: 1.113 2.4 3.3 Total: 1.274 2.7 3.3 IMPRESSION: 1.) The mean bone mineral density of the lumbar spine is normal. Fracture risk is not increased. 2) The bone mineral density of the femoral neck is normal. Fracture risk is not increased.
== END 2020-05-30 10:37 | disposition home or self-care (01) ==
LOC: BICMAMMO 10:36
PROVIDERS: ATTEND Internal Medicine Hematology & Oncology
DX: Z13.820 Encounter for screening for osteoporosis (principal); Z78.0 Asymptomatic menopausal state
CPT/HCPCS: 77080

== ENCOUNTER 2020-08-01 08:10 | Outpatient (CLI) | payer OTHER ==
--- NOTE | 2020-08-01 08:38 | MMO ---
Bilateral MAMMO Bilat Diag [facility]. CLINICAL HISTORY: Patient is 50 years old and is seen for diagnostic exam. The patient has the following family history of breast cancer: female cousin, at age 38, malignant (generic); mother, at age 68, malignant (generic) and maternal aunt, at age 70, malignant (generic). The patient has a history of Stereotactic core biopsy procedure revealed invasive lobular left breast carcinoma in July, and thyroid cancer in 2010. The patient has a history of left Stereotatic Biopsy in July, - malignant and left Lumpectomy in July, - malignant. VIEWS: The views performed were: bilateral craniocaudal with tomosynthesis; bilateral mediolateral oblique with tomosynthesis; and bilateral mediolateral with tomosynthesis. FILMS COMPARED: The present examination has been compared to prior imaging studies performed at [facility] on 07/20/2019, and at [facility] on 07/27/2019 and 08/04/2019. This study has been interpreted with the assistance of computer-aided detection. MAMMOGRAM FINDINGS: There are scattered fibroglandular densities. Finding 1: There are new post operative changes seen in the left breast. Finding 2: There are stable benign appearing calcifications seen in the right breast. There are no suspicious masses, suspicious calcifications, or suspicious areas of architectural distortion. IMPRESSION: THERE IS NO MAMMOGRAPHIC EVIDENCE OF MALIGNANCY. A ROUTINE FOLLOW-UP MAMMOGRAM IN 1 YEAR IS RECOMMENDED. THE RESULTS OF THIS EXAM WERE SENT TO THE PATIENT. ACR BI-RADS Category 2 - Benign finding MAMMOGRAPHY NOTE: 1. A negative mammogram report should not delay a biopsy if a dominant of clinically suspicious mass is present. 2. Approximately 10% to 15% of breast cancers are not detected by mammography. 3. Adenosis and dense breasts may obscure an underlying neoplasm. Reported by: RUBEN CARTER MD Electonically Signed: [id number]
== END 2020-08-01 08:11 | disposition home or self-care (01) ==
LOC: BICMAMMO 08:10
PROVIDERS: ATTEND Surgery
DX: Z08 Encounter for follow-up examination after completed treatment for malignant neoplasm (principal); Z85.3 Personal history of malignant neoplasm of breast; N64.4 Mastodynia
CPT/HCPCS: 77066; G0279

== ENCOUNTER 2021-01-30 | Emergency (ER) | payer OTHER | END 2021-01-30 17:20 | disposition home or self-care (01) ==

== ENCOUNTER 2021-02-06 14:39 | Outpatient (CLI) | payer OTHER | END 2021-02-06 14:40 | disposition home or self-care (01) | LOC: TBSIIMAG 14:39 | PROVIDERS: ATTEND Anesthesiology | DX: M54.17 Radiculopathy, lumbosacral region (principal); M47.816 Spondylosis without myelopathy or radiculopathy, lumbar region; M48.061 Spinal stenosis, lumbar region without neurogenic claudication | CPT/HCPCS: 72148 ==

== ENCOUNTER 2021-03-02 12:46 | Outpatient (CLI) | payer OTHER | END 2021-03-02 12:47 | disposition home or self-care (01) | LOC: TBSIIMAG 12:46 | PROVIDERS: ATTEND Nurse Practitioner Family | DX: M47.24 Other spondylosis with radiculopathy, thoracic region (principal); M51.14 Intervertebral disc disorders with radiculopathy, thoracic region | CPT/HCPCS: 72146 ==

== ENCOUNTER 2021-04-18 07:49 | Outpatient (CLI) | payer OTHER | END 2021-04-18 07:50 | disposition home or self-care (01) | LOC: TBSIIMAG 07:49 | PROVIDERS: ATTEND Nurse Practitioner Family | DX: M47.22 Other spondylosis with radiculopathy, cervical region (principal) | CPT/HCPCS: 72141 ==

== ENCOUNTER 2021-05-09 10:07 | Outpatient (CLI) | payer OTHER | END 2021-05-09 10:08 | disposition home or self-care (01) | LOC: BICMAMMO 10:07 | PROVIDERS: ATTEND Internal Medicine Hematology & Oncology | DX: Z13.820 Encounter for screening for osteoporosis (principal) | CPT/HCPCS: 77080 ==

== ENCOUNTER 2021-06-26 17:30 | Outpatient (CLI) | payer OTHER | END 2021-06-26 17:31 | disposition home or self-care (01) | LOC: SLEEPLAB 17:30 | PROVIDERS: ATTEND Family Medicine | DX: G47.33 Obstructive sleep apnea (adult) (pediatric) (principal); R53.83 Other fatigue; F41.9 Anxiety disorder, unspecified; F32.9 Major depressive disorder, single episode, unspecified; G47.00 Insomnia, unspecified; R06.83 Snoring; E66.9 Obesity, unspecified; Z68.37 Body mass index [BMI] 37.0-37.9, adult | CPT/HCPCS: 95806 ==

== ENCOUNTER 2021-09-06 14:49 | Outpatient (CLI) | payer OTHER | END 2021-09-06 14:50 | disposition home or self-care (01) | LOC: BICMAMMO 14:49 | PROVIDERS: ATTEND Surgery | DX: Z08 Encounter for follow-up examination after completed treatment for malignant neoplasm (principal); Z85.3 Personal history of malignant neoplasm of breast | CPT/HCPCS: 77066; G0279 ==

== ENCOUNTER 2022-05-08 08:56 | Outpatient (CLI) | payer OTHER | END 2022-05-08 08:57 | disposition home or self-care (01) | LOC: BICMAMMO 08:56 | PROVIDERS: ATTEND Internal Medicine Hematology & Oncology | DX: Z13.820 Encounter for screening for osteoporosis (principal); C50.512 Malignant neoplasm of lower-outer quadrant of left female breast; T38.6X5A Adverse effect of antigonadotrophins, antiestrogens, antiandrogens, not elsewhere classified, initial encounter | CPT/HCPCS: 77080 ==

== ENCOUNTER 2022-09-09 09:34 | Outpatient (CLI) | payer OTHER | END 2022-09-09 09:35 | disposition home or self-care (01) | LOC: BICMAMMO 09:34 | PROVIDERS: ATTEND Surgery | DX: Z08 Encounter for follow-up examination after completed treatment for malignant neoplasm (principal); Z85.3 Personal history of malignant neoplasm of breast | CPT/HCPCS: 77066; G0279 ==

== ENCOUNTER 2024-09-23 10:45 | Outpatient (CLI) | payer OTHER | END 2024-09-23 10:46 | disposition home or self-care (01) | LOC: BICMAMMO 10:45 | PROVIDERS: ATTEND Emergency Medicine | DX: Z08 Encounter for follow-up examination after completed treatment for malignant neoplasm (principal); Z85.3 Personal history of malignant neoplasm of breast | CPT/HCPCS: 77066; G0279 ==